=== PATIENT | male | born 1975 | race Caucasian/White ===

== ENCOUNTER 2017-03-08 05:44 | Day surgery (SDC) | payer OTHER ==
--- NOTE | 2017-03-07 19:56 | PREOPHP ---
DATE OF ADMISSION: 03/08/2017 HISTORY OF PRESENT ILLNESS: A 41-year-old patient who is going to be admitted for diagnostic arthro scopy of the right shoulder, examination under general anesthesia, SLAP repair, Bankart repair, rota tor cuff repair. This patient has been experiencing shoulder pain for quite a while. Conservative treatment resulted in limited benefit to the patient, and the patient has requested surgical intervention. SOCIAL HISTORY: Chronic smoker and supposed to stop by the time of surgery. FAMILY HISTORY: Negative. PAST SURGICAL HISTORY: Negative. MEDICATIONS: 1. Vicodin. 2. Sulindac. 3. Baclofen for postop. 4. Gabapentin. 5. Bactrim-DS. ALLERGIES: NO HISTORY OF ALLERGY TO MEDICATION. REVIEW OF SYSTEMS: Limited to present illness. PHYSICAL EXAMINATION: SKIN: Within normal limits. EARS, NOSE, THROAT: PERRLA. HEAD AND NECK: Normocephalic. Trachea midline. Bilateral symmetrical carotid pulses. No mass, no bruit, no lymphadenopathy. No JVD. CARDIOVASCULAR: Normal sinus rhythm. S1, S2 normal. No murmur. No peripheral edema. LUNGS: Clear. ABDOMEN: No organomegaly, no mass. Bowel sounds present. GENITOURINARY AND RECTAL: Not done, not pertinent to this admission. MUSCULOSKELETAL: Height of 66, weighing 178 pounds. Head and neck unremarkable. Upper extremities normal except for right shoulder. Range of motion is about 70%, with tenderness in the subacromial space, anterior glenohumeral joint. Positive [place] test. Positive impingement sign. Spine and both lower extremities symmetrical and normal. IMAGING: Radiologic report of the right shoulder MRI indicates high-grade partial tearing of supras pinatus, mild AC joint . DIAGNOSES: 1. Right shoulder rotator cuff tear. 2. Right shoulder impingement. 3. Possible superior labrum anterior and posterior lesion, Bankart lesion. Treatment plan, alternatives, risks and benefits discussed. The patient understands possible compli cations from surgery such as infection, bleeding, nerve damage, vascular damage, possibility of deep venous thrombosis, pulmonary embolism, hypersensitivity from medication, and even . [place] res ult may not be obtained depending on actual finding or known or unknown factor or factors. Formal H and P is supposed to be done by PCP[facility]. . Dictated By: JARROD CARDENAS/DAVONTE Conf#: [id number] DID#: [id number]
[~2017-03-08] VITALS: Ht 198.1 cm; Wt 84.5 kg
[2017-03-08] VITALS (16 sets, daily range): BP systolic 116–141; BP diastolic 56–88; PULSE 48–60; RESP 12–36; Ht 198.1 cm; Wt 84.5 kg
[~2017-03-08 05:44] MED LIST: HYDR-3498 PO; IBUP-1542 PO; MULT-552 PO
[2017-03-08] MEDS ORDERED: BACL10TA PO (06:37)
[2017-03-08] MEDS ORDERED: GABA300C PO (06:37)
[2017-03-08] MEDS ORDERED: SULI150T39 PO (06:37)
[2017-03-08] MEDS ORDERED: EPINEPHrine 1 MG/ML 30 ML INJ ONE (07:00)
[2017-03-08] MEDS ORDERED: PROPOFOL 200 MG INJ ONE (07:00)
[2017-03-08] MEDS ORDERED: morphine SULFATE/PF (10 MG/10 ML) INJ ONE (07:20)
[2017-03-08] MEDS ORDERED: MIDAZOLAM 1 MG/ML 2 ML INJ ONE (07:22)
[2017-03-08] MEDS ORDERED: ROPIVACAINE 0.5 % 30 ML VIAL ONE (07:23)
[2017-03-08] MEDS ORDERED: SUCCINYLCHOLINE CHLORIDE 100 MG/5 ML SYG IV ONE (07:24)
[2017-03-08] MEDS ORDERED: ROCURONIUM 50 MG INJ ONE (07:24)
[2017-03-08] MEDS ORDERED: PROPOFOL 20 ML ONE (07:24)
[2017-03-08] MEDS ORDERED: LIDOCAINE 2% (SDV) 5 ML INJ ONE (07:24)
[2017-03-08] MEDS ORDERED: FENTAnyl 50 MCG/ML VIAL ONE ×2 (07:39→09:49)
[2017-03-08] MEDS ORDERED: CEFAZOLIN 2 GM/50 ML (PMX) 50 ML IVPB SCH (08:00)
[2017-03-08] MEDS ORDERED: DEXAMETHASONE 4 MG/ML 1 ML INJ ONE (08:17)
[2017-03-08] MEDS ORDERED: ONDANSETRON 4 MG INJ ONE (08:17)
[2017-03-08] MEDS ORDERED: FAMOTIDINE 20 MG INJ ONE (08:17)
[2017-03-08] MEDS ORDERED: EPINEPHrine 1 MG/ML 30 ML INJ IRR ONE (09:10)
[2017-03-08] MEDS ORDERED: NEOSTIGMINE 3 MG/3 ML SYRINGE ONE (09:51)
[2017-03-08] MEDS ORDERED: GLYCOPYRROLATE 0.4 MG INJ ONE (09:51)
--- NOTE | 2017-03-08 10:15 | SIPON ---
Date/Time of Note Date/Time of Note DATE: 03/08/17 TIME: 10:08 Operative Report Preoperative Diagnosis Slap,, Bankart lesion and cuff tear of Right shoulder Postoperative Diagnosis The same Operation/Procedure Performed Diagnostic scope, EUA, partial superior labrum removal, Slap, Bankart repair, plus acromioplasty Surgeon Jarrod Hines MD management assistant RFNA and Scrab Anesthesia: general Estimated blood loss: minimal Transfusion Required none Specimen None Grafts/Implants none Complications none JARROD HINES MD Mar 08, 2017 10:15
[2017-03-08] MEDS ORDERED: DIPHENHYDRAMINE 50 MG INJ IV PRN (10:30)
[2017-03-08] MEDS ORDERED: MEPERIDINE 25 MG INJ IV PRN (10:30)
[2017-03-08] MEDS ORDERED: PROCHLORPERAZINE 10 MG INJ IV PRN (10:30)
[2017-03-08] MEDS ORDERED: FENTAnyl 50 MCG/ML VIAL IV PRN ×3 (10:30)
[2017-03-08] MEDS ORDERED: hydrALAzine 20 MG INJ IV PRN (10:30)
[2017-03-08] MEDS ORDERED: OXYCODONE/ACETAMINOPHEN (5/325) TAB PO PRN ×2 (10:30)
[2017-03-08] MEDS ORDERED: ONDANSETRON 4 MG INJ IV PRN (10:30)
[2017-03-08] MEDS ORDERED: HYDROmorphONE (0.2 MG/ML) 10ML SYG IV PRN ×3 (10:30)
--- NOTE | 2017-03-08 12:23 | OPR ---
DATE OF OPERATION: PREOPERATIVE DIAGNOSES: 1. Right shoulder SLAP lesion. 2. Bankart lesion. 3. Rotator cuff tear of right shoulder. POSTOPERATIVE DIAGNOSES: 1. Right shoulder SLAP lesion. 2. Bankart lesion. 3. Rotator cuff tear of right shoulder. PROCEDURE: Diagnostic arthroscopy, examination under general anesthesia, SLAP repair, Bankart repai r, acromioplasty and trimming of the superior and anterior labrum. ANESTHESIA: General and shoulder block by anesthesiologist. BLEEDING: Minimal. COMPLICATIONS: None. OPERATIVE FINDINGS: A type 1 and also almost type 3 SLAP lesion of right shoulder, anterior instabi lity, partial thickness rotator cuff tear supraspinatus area, mild synovitis, impingement syndrome, right shoulder. DESCRIPTION OF PROCEDURE: The patient was transferred to the operating room and placed on the table in supine position. General anesthesia was induced. A gram of Ancef was given IV, then the patien t was put on left decubitus position. Axillary roll applied. Bony areas were padded. Beanbag defl ated. Right shoulder was shaved, prepped and draped in the routine fashion. Landmarks were marked and 2 posterior portal glenohumeral joint was entered and anterolateral portal was established. Mary luation of the shoulder indicated type 1 and almost type 2 SLAP lesion and there was a large amount of vascularity over the attachment of the biceps tendon and supraspinatus was extending posteriorly. Examination under general anesthesia indicated almost 45% anterior instability of right shoulder. There was absence of loose body. There was a lot of fraying in the anterior and inferior part of t he superior and inferior labrum. There was a regular ____ of anterior labrum, mild synovitis was se en posteriorly. There was redundancy of the capsule and rotator cuff was partially about 15% to 20% torn at the attachment of the supraspinatus tendon. Subscapularis was intact. Infraspinatus and t race minor was intact. Posterior labrum was intact. We trimmed the superior labrum which was extending to 2 o'clock position. This was shredded to smoo th margins and then we used a suture lasso FiberStick and PushLock to repair the type 3 SLAP lesion and move it superiorly to where it belongs to a bleeding surface. Then, because of capsule redundan cy, we minimized the capsular redundancy by using suture lasso FiberStick and closing the redundancy by pulling up on the ____ of the capsule and we incorporated it to the 2:30 position in the posteri or part of the labrum and at this point, the shoulder was examined and no instability was detected, then we used a PushLock to stabilize the bleeding surface. Shoulder was evacuated from debris with copious amount of saline irrigation. Hemostasis was obtained with electrocautery, synovectomy was d one with surface. We entered the subacromial space from the anterolateral portal and downsloping of the acromion was s een and type 2 acromion was identified. There was a lot of fraying in the rotator cuff. Therefore, formal acromioplasty was performed. Hemostasis was obtained with the help of cautery. Evaluation of the rotator cuff superiorly identified no subscapularis, supraspinatus, infraspinatus or ____ tea r. The acromial space was irrigated with copious amounts of saline irrigation. Portal was closed w ith skin bruno and 10 mg of Duramorph mixed with 10 mL of injectable saline was injected half into the subacromial space and half in glenohumeral joint. Sterile dressing was applied. Shoulder immo bilizer was placed on. The patient was put supine and transferred to [facility] and subsequently to rec overy room in good and stable condition. Dictated By: JARROD CARDENAS/DAVONTE Conf#: [id number] DID#: [id number]
== END 2017-03-08 12:07 | disposition home or self-care (01) ==
LOC: SDS 05:44
PROVIDERS: ATTEND Internal Medicine Endocrinology, Diabetes & Metabolism
DX: M75.101 Unspecified rotator cuff tear or rupture of right shoulder, not specified as traumatic (principal); S43.431A Superior glenoid labrum lesion of right shoulder, initial encounter; X58.XXXA Exposure to other specified factors, initial encounter
CPT/HCPCS: 29806; C1713; J0171; J1100; J1170; J2250; J2274; J2405; J2710; J2795; J3010; Z7512; Z7610